=== PATIENT | male | born 1955 | race African-American/Black ===

== ENCOUNTER 2025-04-03 06:10 | Emergency (ER) | payer MEDICARE, OTHER ==
[~2025-04-03] VITALS: Ht 175.3 cm; Wt 82.2 kg
--- NOTE | 2025-04-03 07:07 | ED.PDOC ---
GI ASSESSMENT HPI Comments 69 year old male, presents to the emergency department for chief complaint of constipation. Patient states he has been experiencing symptoms of constipation x1 week with the associated symptoms of right lower back pain. Patient reports, to have had x1 bowel movement in the last week. Patient describes bowel movement to have been small and hard in appearance. At this time patient complains of 8/10 right lower back pain. Patient denies nausea, vomiting, diarrhea, or urinary symptoms. Chief Complaint: Constipation Time Seen by MD: 06:55 Reviewed Notes: Nurses Notes, Medications, Allergies Allergies: Coded Allergies: NO KNOWN ALLERGIES (Unverified , 04/03/25) Home Meds Active Scripts Ibuprofen Micronized (MOTRIN TABLET) 600 Mg Tb, 600 MG PO TID PRN for 3 Days, #9 TAB *Black box warning-NSAIDS can increase risk of KS & hypertension, GI irritation, ulceration, bleed, perferation. Do not use post cardiac surgery. Use short duration/lowest effective dose. Prov:ENRIQUE LONGO MD 04/03/25 Tamsulosin Hcl (Flomax) 0.4 Mg Cap, 1 CAP PO DAILY for 5 Days, #5 CAP 11 Refills Prov:ENRIQUE LONGO MD 04/03/25 Information Source: Patient Mode of Arrival: Ambulatory Timing: Weeks Duration: Since onset Prehospital treatment: None Vomitus: None Stool: Impaction Severity: Moderate Recent: None Recent Hx of: None Pain Location: None Modifying Factors: Nothing Associated sign and symptoms: Constipation Past Medical History PAST MEDICAL HISTORY: Denies Surgical History: Denies all surgeries Family History Family History: Unknown Social History Smoker: Non-Smoker Alcohol: Denies ETOH Use Drugs: Denies Drug Use Lives In: Home Constitutional: denies: chills, diaphoresis, fatigue, fever, malaise, sweats, weakness, others EENTM: denies: blurred vision, double vision, ear bleeding, ear discharge, ear drainage, ear pain, ear ringing, eye pain, eye redness, hearing loss, mouth pain, mouth swelling, nasal discharge, nose bleeding, nose congestion, nose pain, photophobia, tearing, throat pain, throat swelling, voice changes, others Respiratory: denies: cough, hemoptysis, orthopnea, SOB at rest, shortness of breath, SOB with excertion, stridor, wheezing, others Cardiovascular: denies: chest pain, dizzy spells, diaphoresis, Dyspnea on exertion, edema, irregular heart beat, left arm pain, lightheadedness, palpitations, PND, syncope, others Gastrointestinal: reports: constipated; denies: abdomen distended, abdominal pain, blood streaked bowels, diarrhea, dysphagia, difficulty swallowing, hematemesis, melena, nausea, poor appetite, poor fluid intake, rectal bleeding, rectal pain, vomiting, others Genitourinary: denies: burning, dysuria, flank pain, frequency, hematuria, incontinence, penile discharge, penile sore, pain, testicle pain, testicle s welling, urgency, others Neurological: denies: dizziness, fainting, headache, left sided numbness, left sided weakness, numbness, paresthesia, pre-existing deficit, right sided numbness, right sided weakness, seizure, speech problems, tingling, tremors, weakness, others Musculoskeletal: reports: back pain; denies: gout, joint pain, joint swelling, muscle pain, muscle stiffness, neck pain, others Integumetry: denies: bruises, change in color, change in hair/nails, dryness, laceration, lesions, lumps, rash, wounds, others Allergic/Immunocompromised: denies: Difficulty Healing, Frequent Infections, Hives, Itching, others Hematologic/Lymphatic: denies: anemia, blood clots, easy bleeding, easy bruising, swollen glands, others Endocrine: denies: excessive hunger, excessive sweating, excessive thirst, excessive urination, flushing, intolerance to cold, intolerance to heat, unexplained weight gain, unexplained weight loss, others Psychiatric: denies: anxiety, bipolar disorder, depression, hopeless, panic disorder, schizophrenia, sleepless, suicidal, others All Other Systems: Reviewed and Negative Physical Exam General Appearance: Moderate Distress HEENT: Normal ENT Inspection, Pharynx Normal, TMs Normal Neck: Full Range of Motion, Non-Tender, Normal, Normal Inspection Respiratory: Chest Non-Tender, Lungs Clear, No Accessory Muscle Use, No Respiratory Distress, Normal Breath Sounds Cardiovascular: No Edema, No JVD, No Murmur, No Gallop, Normal Peripheral Pul ses, Regular Rate/Rhythm Breast Exam: Deferred Gastrointestinal: No Organomegaly, Non Tender, No Pulsatile Mass, Normal Bowel Sounds, Soft Genitalia: Deferred Pelvic: Deferred Rectal: Deferred Extremities: No calf tenderness, Normal capillary refill, Normal inspection, Normal range of motion, Non-tender, No pedal edema Musculoskeletal : Apperance: Normal Neurologic: Alert, trademark attorney II-XII nml as Tested, No Motor Deficits, Normal Affect, Normal Mood, No Sensory Deficits Cerebellar Function: Normal Reflexes: Normal Skin: Dry, Normal Color, Warm Peripheral Pulses: 3+ Radial (R), 3+ Radial (L) Lymphatic: No Adenopathy Was a procedure done? Was a procedure done?: No GI differential Dx Differential Diagnosis: Bowel Obstruction, Constipation, Diverticular disease, Esophagitis, Gastritis/PUD, Gastroenteritis X-Ray, Labs, Meds, VS Vital Signs Date Time Temp Pulse Resp B/P (MAP) Pulse Ox O2 Delivery O2 Flow Rate FiO2 04/03/25 07:35 97.9 55 18 128/94 (105) 100 97.9 04/03/25 07:35 55 18 98 Room Air 04/03/25 06:12 97.3 73 16 136/86 98 97.3 Current Medications Medications (Trade) Dose Ordered Sig/Freya Route Start Time Stop Time Status Last Admin Docusate Sodium (Colace Capsule) 100 mg ONCE ONCE PO 04/03/25 06:45 04/03/25 06:46 DC 04/03/25 07:29 Sodium Chloride 1,000 ml @ 1,000 mls/hr Q1H ONCE IV 04/03/25 08:00 04/03/25 08:59 04/03/25 08:18 Tamsulosin HCl (Flomax) 0.4 mg ONCE ONCE PO 04/03/25 08:00 04/03/25 08:01 DC 04/03/25 08:29 Patient alert. Came in because of flank pain. Vitals stable. Answering questions. States that he has not had a bowel movement for a week. KUB does show a kidney stone. Establish intravenous access. Was given fluids. Was given pain medication. Was given Flomax. Explained to the patient. Was told to follow up with his primary care physician. Was told to come back if there is any problem. [facility] [id number] [place] [id number] Ph: [phone] DIAGNOSTIC IMAGING Diagnostic Imaging Report : [id number] Signed PATIENT: KD FORD ACCT: [id number] UNIT: [id number] : 1955 LOC: ER ROOM / BED: / AGE / SEX: 69 / M ADM STATUS: REG ER SERVICE 0 ORDERING PHYSICIAN: ENRIQUE LONGO MD PROCEDURE(s): KUB - KUB ABDOMEN SINGLE VIEW REASON: constipation ORDER NUMBER(s): [id number], ACCESSION NUMBER(s): [id number] Date: 04/03/2025 06:56 AM Examination: XY KUB ABDOMEN SINGLE VIEW History: constipation Comparison: None TECHNIQUE: Frontal views of the abdomen was obtained. FINDINGS: Large amount of stool throughout the colon. Nonobstructive bowel gas pattern. 4.5 mm calcific density overlying the right kidney, possibly a renal stone. No acute osseous abnormality identified. IMPRESSION: Constipation 4.5 mm calcific density overlying the right kidney, possibly a renal stone. ATED BY: RENNY MORFIN MD DICTATED DATE/TIME: 04/03/25741 SIGNED BY: RENNY MORFIN MD SIGNED DATE/TIME: 04/03/25741 CC: Time of 1ST Reevaluation: 07:25 Reevaluation 1ST: Unchanged Patient Education/Counseling: Diagnosis, Treatment Family Education/Counseling: No Family Present SEPSIS Sepsis Screen Date sepsis recognized/suspect: Apr 03, 2025 Time Sepsis recognized/suspect: 613 Recent Procedure: No On Antibiotic Therapy: No Respiratory Rate >20: No Heart Rate >90: No Temp<36 C (96.8 F) or >38.3 C: No SBP <90 or MAP <65 mmHG: No New Acute Mental Status Change: No Is the patient on CPAP, BIPAP,: No Physician Orders Kub Abdomen Single View (04/03/25 06:41) Sodium Chloride 0.9% (04/03/25 08:00) Vital Signs Date Time Temp Pulse Resp B/P (MAP) Pulse Ox O2 Delivery O2 Flow Rate FiO2 04/03/25 07:35 97.9 55 18 128/94 (105) 100 97.9 04/03/25 07:35 55 18 98 Room Air 04/03/25 06:12 97.3 73 16 136/86 98 97.3 Medications Medications Dose Ordered Sig/Freya Route Start Time Stop Time Status Last Admin Dose Admin Docusate Sodium 100 mg ONCE ONCE PO 04/03/25 06:45 04/03/25 06:46 DC 04/03/25 07:29 Sodium Chloride 1,000 ml @ 1,000 mls/hr Q1H ONCE IV 04/03/25 08:00 04/03/25 08:59 04/03/25 08:18 Tamsulosin HCl 0.4 mg ONCE ONCE PO 04/03/25 08:00 04/03/25 08:01 DC 04/03/25 08:29 Departure 1 Departure Time of Disposition: 07:54 Impression: Primary Impression: Kidney stone Disposition: 01 HOME / SELF CARE / HOMELESS Condition: Good e-Prescriptions Ibuprofen Micronized (MOTRIN TABLET) 600 Mg Tb 600 MG PO TID PRN for 3 Days, #9 TAB *Black box warning-NSAIDS can increase risk of KS & hypertension, GI irritation, ulceration, bleed, perferation. Do not use post cardiac surgery. Use short duration/lowest effective dose. Prov: ENRIQUE LONGO MD 04/03/25 Tamsulosin Hcl (Flomax) 0.4 Mg Cap 1 CAP PO DAILY for 5 Days, #5 CAP 11 Refills Prov: ENRIQUE LONGO MD 04/03/25 Discharged With: Self Critical Care Note Critical Care Time?: No Stability Stability form required: No Heart Score Heart Score: Heart Score Response (Comments) Value History N/A 0 EKG N/A 0 Age N/A 0 Risk Factors N/A 0 Troponin N/A 0 Total 0 I personally scribed for ENRIQUE LONGO MD ([email or web address]) on 04/03/25 at 07:07. Electronically submitted by Jennifer Sargent ([email or web address]). I personally scribed for ENRIQUE LONGO MD ([email or web address]) on 04/03/25 at 08:57. Electronically submitted by Jennifer Sargent ([email or web address]). ENRIQUE LONGO MD Apr 03, 2025 07:07
[2025-04-03] MEDS: DOCUSATE SOD 100 MG CAP PO ONE (07:29)
[2025-04-03 07:35] VITALS: BP 128/94; PULSE 55; RESP 18; TEMP 97.9; O2SAT 98
--- NOTE | 2025-04-03 07:45 | DVH ---
Date: 04/03/2025 06:56 AM Examination: XY KUB ABDOMEN SINGLE VIEW History: constipation Comparison: None TECHNIQUE: Frontal views of the abdomen was obtained. FINDINGS: Large amount of stool throughout the colon. Nonobstructive bowel gas pattern. 4.5 mm calcific density overlying the right kidney, possibly a renal stone. No acute osseous abnormality identified. IMPRESSION: Constipation 4.5 mm calcific density overlying the right kidney, possibly a renal stone.
[2025-04-03] MEDS ORDERED: TAMS-35 PO (07:55)
[2025-04-03] MEDS ORDERED: IBU600T PO (07:55)
[2025-04-03] MEDS: SODIUM CHLORIDE 0.9% 1,000 ML IV ONE (08:18)
[2025-04-03] MEDS: TAMSULOSIN HYDROCHLORIDE 0.4 MG CAP PO ONE (08:29)
== END 2025-04-03 09:23 | disposition home or self-care (01) ==
LOC: ER 06:10
DX: N20.0 Calculus of kidney (principal); Z79.899 Other long term (current) drug therapy
CPT/HCPCS: 74018; 96360; 99283; J7030